=== PATIENT | male | born 1985 | race Caucasian/White ===

== ENCOUNTER → 2024-08-03 11:42 | Outpatient (CLI) | payer OTHER, SELFPAY ==
--- NOTE | 2024-08-03 11:49 | DI.MRI.S_ITS ---
PROCEDURE: MR BRAIN (IAC) WWO CON INDICATIONS: Sensorineural hearing loss, unilateral, left ear, TECHNIQUE: Noncontrast sagittal T1 spin echo, axial FLAIR, axial gradient echo, axial diffusion and ADC through the brain. Axial thin-slice 3D CISS, coronal TruFISP, axial T1 spin echo with fat saturation through the internal auditory canals. After the administration of contrast, thin slice axial and coronal T1 spin echo with fat saturation through the internal auditory canals, and axial and coronal and sagittal T1 spin echo with fat saturation through the brain. COMPARISON: None. FINDINGS: Image quality: Excellent. Cerebellopontine angles: No cerebellopontine angle masses. Inner ear structures appear normally formed. No suspicious enhancement in the internal auditory canal or along the course of the 7th cranial nerve. CSF spaces: Ventricles are normal in size and shape. No extra-axial fluid collections. Basal cisterns are patent. Brain: No intracranial bleeds or mass effects. [place]izarro-white matter interface is intact. No abnormal intracranial enhancement. Diffusion weighted images demonstrate no acute ischemic insults. Brainstem appears normal. Normal intravascular flow voids are present. Skull and face: Calvarial marrow signal is normal. Orbits appear normal. Sinuses: Sinuses and mastoids are clear. IMPRESSION: No significant abnormality is seen. Specifically, no masses or abnormal enhancement are seen within the cerebellopontine angle cisterns or within the internal auditory canals. Dictated by: Siva Jj M.D. on 08/03/2024 at 12:52 Approved by: Siva Jj M.D. on 08/03/2024 at 12:53
== END ==
LOC: MRI 11:48
PROVIDERS: PCP Family Medicine; Referring Provider Otolaryngology; Visit Provider Otolaryngology
DX: H90.42 Sensorineural hearing loss, unilateral, left ear, with unrestricted hearing on the contralateral side (principal); H93.12 Tinnitus, left ear; H93.8X2 Other specified disorders of left ear
CPT/HCPCS: 70553; A9579

== ENCOUNTER 2025-08-19 10:36 | Emergency (ER) | payer OTHER, SELFPAY ==
[2025-08-19] VITALS (9 sets, daily range): BP systolic 117–160; BP diastolic 70–91; PULSE 76–94; RESP 12–22; TEMP 36.7; O2SAT 97–99; BMI 32.5
--- OUTSIDE RECORDS SUMMARY | 2025-08-19 10:38 | XMS_ITS | Encounter Summary ---
Author Organization [facility] Address [address] [place] [address] Care Team Providers Care Head Of Commission Department Name Role Phone Pcp, None Selected Primary Care Provider Unavail able Encounter Details Date Type Department Care Team (Late st Contact Info) Description 08/31/2024 Abstract [facility] [place] [address] [place] [address] [place] [id number] Thomas Jackson MD [address] [place] [address] Social History Tobacco Use Types Packs/Day Years Used Date Smoking Tobacco: Some Days Cigars Smokeless Tobacco: Never Comments:Occasional cigar Alcohol Use Standard Drinks/Week Comments Yes 2 (1 standard drink = 0.6 oz pur e alcohol) Days of couple here and there Sex and Gender Information Value Date Recorded Sex Assigned at Not on file Legal Sex Male 7:33 PM PDT Gender Identity Not on file Sexual Orientation Not on file 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
--- NOTE | 2025-08-19 10:50 | EKG_ITS ---
[address] [address] Test Date: 2025-08-19 Pat Name: Feliz Holland Department: Room: Gender: Male Director Human Services: DINO : 1985 Requested By: Order Number: [id number] Reading MD: Vernon Barajas Measurements Intervals [place] Rate: 81 P: 24 ND: 148 QRS: 15 QRSD: 90 T: 23 QT: 370 QTc: 429 Interpretive Statements Normal sinus rhythm Electronically Signed On 08-19-2025 18:29:36 PST by Vernon Barajas
--- NOTE | 2025-08-19 10:50 | DI.RAD.S_ITS ---
PROCEDURE: XR CHEST 1V INDICATIONS: Chest Pain TECHNIQUE: One view of the chest was acquired. COMPARISON: None. FINDINGS: Surgical changes and devices: None. Lungs and pleura: Lungs are clear. No pleural effusions or pneumothorax. Mediastinum: Mediastinal contours appear normal. Heart size is normal. Bones and chest wall: No suspicious bony lesions. Overlying soft tissues appear unremarkable. IMPRESSION: No acute cardiopulmonary abnormality is seen. Approved by: Kanwal Deras M.D.,Ph.D. on 08/19/2025 at 11:18
--- NOTE | 2025-08-19 11:12 | ED.CHESTPAIN ---
HPI - Chest Pain General Chief Complaint: Chest Pain Stated Complaint: chest pain , 2 days Time Seen by Provider: 08/19/25 10:57 Source: patient Mode of arrival: Ambulatory Limitations: no limitations History of Present Illness HPI narrative: Patient is a 40-year-old male without significant past medical problems presenting today with couple days of ongoing chest pain and pressure. He says it is constant in nature more in the right side than the left he occasionally gets sharp shooting pain. Sometimes short of breath when he walks. No known family history of coronary artery disease. However an uncle or someone has an abdominal aortic aneurysm. Pain is slightly reproducible when palpated. He denies any injury lifting exercise or other. He has not tried anything at home for pain. He has not been ill no significant cough or fever. Related Data Allergies Allergy/AdvReac Type Severity Reaction Status Date / Time No Known Drug Allergies Allergy Verified 08/19/25 10:55 Patient History Social History Smoking Status: Never smoker Smoking Status: Never smoker Exam Initial Vital Signs Initial Vital Signs: Vital Signs Temperature 98.0 F 08/19/25 10:53 Pulse Rate 94 H 08/19/25 10:53 Respiratory Rate 14 08/19/25 10:53 Blood Pressure 160/91 H 08/19/25 10:53 Pulse Oximetry 99 08/19/25 10:53 Oxygen Delivery Method Room Air 08/19/25 10:53 GENERAL: Alert pleasant well-appearing 40-year-old and in no acute distress. HEENT: Head atraumatic,EOMI, pupils reactive, face symmetric, moist mucous membranes CARDIOVASCULAR: Regular rate and rhythm without murmurs, rubs or gallops. Slightly reproducible right-sided chest pain no significant reproducible pain with right arm movement RESPIRATORY: Breath sounds equal bilaterally, no wheezes rales or rhonchi. ABDOMEN: Soft, nontender. Normoactive bowel sounds all 4 quadrants. No guarding or rebound. EXTREMITIES: Normal range of motion, no clubbing or edema. Neurovascularly intact NEUROLOGICAL: Alert and oriented x4.Normal gait and speech. Cranial nerves II through XII grossly intact. SKIN: Warm, dry, no laceration, no petechiae, no rashes or lesions. Scores HEART Score Heart Score history: Slightly Suspicious Heart Score EKG: Normal Heart Score Age: < 45 years old Heart Score risk factors: No known risk factors Heart Score troponin: < or = to normal limit Heart Score Total: 0 PERC Score Age greater than or equal to 50 years: No Heart rate greater than or equal to 100 bpm: No Room Air O2 Sat less than 95%: No Unilateral leg swelling: No Recent trauma or surgery: No Hemoptysis: No Prior PE or DVT: No Hormone Use: No Total PERC Score: 0 Course Orders Ordered: ED Orders 08/19/25 10:50 XR chest 1V Stat EKG-12 Lead Stat 08/19/25 11:00 Complete Blood Count AUTO DIFF Stat Comprehensive Metabolic Panel Stat D Dimer Stat Lipase Stat Magnesium Stat NT-proBNP (BNP-Adult 18+) Stat PTT Partial Thromboplastin Otto Stat Prothrombin Time INR Stat Troponin & CK Cardiac Panel Stat Discontinued Medications Aspirin (Aspirin 81 Mg Chew Tab) 324 mg PO NOW ONE Stop: 08/19/25 10:51 Last Admin: 08/19/25 10:53 Dose: Not Given Documented By: HUEY Vital Signs Vital signs: Vital Signs - 8 hr 08/19/25 10:53 08/19/25 11:00 08/19/25 11:01 Temperature 98.0 F Pulse Rate 94 H 86 Respiratory Rate 14 19 Blood Pressure 160/91 H 135/78 Pulse Oximetry 99 97 Oxygen Delivery Method Room Air Room Air 08/19/25 11:01 08/19/25 11:30 08/19/25 11:30 Temperature Pulse Rate 87 80 Respiratory Rate 20 21 Blood Pressure 117/70 Pulse Oximetry 98 97 Oxygen Delivery Method 08/19/25 11:59 08/19/25 12:00 08/19/25 12:00 Temperature Pulse Rate 77 76 Respiratory Rate 22 21 Blood Pressure 121/77 Pulse Oximetry 98 98 Oxygen Delivery Method 08/19/25 12:14 08/19/25 12:14 08/19/25 12:30 Temperature Pulse Rate 80 76 Respiratory Rate 21 12 Blood Pressure 125/81 Pulse Oximetry 98 99 Oxygen Delivery Method 08/19/25 12:30 08/19/25 13:00 08/19/25 13:00 Temperature Pulse Rate 80 Respiratory Rate 16 Blood Pressure 126/72 131/79 Pulse Oximetry 98 Oxygen Delivery Method MDM - Chest Pain Lab Data 08/19/25 11:00 08/19/25 11:00 Labs: Lab Results 08/19/25 Range/Units 11:00 WBC 5.6 (4.5-11.0) X10^3/uL RBC 5.13 (4.5-5.9) X10^6/uL Hgb 15.0 (13.5-17.5) g/dL Hct 43.4 (41-53) % MCV 84.5 (80-100) fL MCH 29.3 (26-34) PG MCHC 34.6 (30-36) % RDW 13.2 (11.6-14.8) % Plt Count 203 (150-400) X10^3/uL Neut % (Auto) 57.3 (50-75) % Lymph % (Auto) 33.4 (25-40) % [place] % (Auto) 8.1 (3-14) % Eos % (Auto) 0.5 L (2-4) % Baso % (Auto) 0.7 (0-2) % Neut # (Auto) 3200 (4879-5334) /uL Lymph # (Auto) 1900 (3933-2906) /uL [place] # (Auto) 500 (0-900) /uL Eos # (Auto) 0 (0-450) /uL Baso # (Auto) 0 (0-100) /uL PT 11.3 (9.4-12.5) SECONDS INR 1.0 (0.9-1.3) APTT 37 H (25.1-36.5) SECONDS D-Dimer < 215 (<500) ng/ml Sodium 140 (137-145) mmol/L Potassium 4.1 (3.4-5.1) mmol/L Chloride 106 (98-107) mmol/L Carbon Dioxide 25 (22-32) mmol/L BUN 12 (9-20) mg/dL Creatinine 0.99 (0.66-1.25) mg/dL Estimated GFR > 60 (>60) mL/min BUN/Creatinine Ratio 12.1 (6-22) Glucose 102 H (70-99) mg/dL Calcium 9.6 (8.4-10.2) mg/dL Magnesium 2.2 (1.6-2.3) mg/dL Total Bilirubin 0.5 (0.2-1.3) mg/dL AST 29 (17-59) IU/L ALT 33 (<50) IU/L Alkaline Phosphatase 61 (38-126) U/L Total Creatine Kinase 101 (55-170) U/L Troponin I < 0.012 (0.01-0.034) ng/mL NT-Pro-B Natriuret Pep < 20 (<125) pg/mL Total Protein 7.9 (6.3-8.2) g/dL Albumin 4.8 (3.5-5.0) g/dL Globulin 3.1 (1.7-4.1) g/dL Albumin/Globulin Ratio 1.5 (1.0-2.8) Lipase 83 (23-300) U/L Urine Dip Bedside Urine Glucose Negative Bedside Urine Bilirubin - Negative Bedside Urine Ketone - Negative Urine Specific [place] 1.000 Bedside Urine Occult Blood - Negative Bedside Urine pH 6.0 Bedside Urine Protein - Negative Bedside Urine Urobilinogen - Negative Bedside Urine Nitrite - Negative Bedside Urine Leukocytes - Negative Esterase Imaging Data Chest x-ray: Radiologist's Impression: PROCEDURE: XR CHEST 1V INDICATIONS: Chest Pain TECHNIQUE: One view of the chest was acquired. COMPARISON: None. FINDINGS: Surgical changes and devices: None. Lungs and pleura: Lungs are clear. No pleural effusions or pneumothorax. Mediastinum: Mediastinal contours appear normal. Heart size is normal. Bones and chest wall: No suspicious bony lesions. Overlying soft tissues appear unremarkable. IMPRESSION: No acute cardiopulmonary abnormality is seen. Approved by: Kanwal Deras M.D.,Ph.D. on 08/19/2025 at 11:18 ECG Data Attestation: I personally reviewed and interpreted this ECG as follows: Interpretation: Normal sinus rhythm rate 81 HI interval 148 QRS [address] changes no T-wave inversion MDM Narrative Medical decision making narrative: [facility] CC: Chest pain Complicating co-morbidities: None Data collected from: Patient and Medical records reviewed: None Differential considered: Musculoskeletal/costochondritis Acute coronary syndrome, pulmonary embolism, pneumonia, pneumothorax Exam documented above, pertinent findings include: Alert well-appearing 40-year-old male with reproducible right-sided chest pain Lab Test results independently reviewed as above. Pertinent findings: CBC within normal CMP within normal limits Troponin negative D-dimer negative Independently reviewed EKG as above Sinus rhythm without ischemia Imaging studies independently reviewed: Chest x-ray no acute cardiopulmonary process Consultations:none Treatments: Offered Toradol but declined Re-evaluations: Pain is roughly the same but very tolerable Discussion: Patient is a 40-year-old male presenting today with right-sided chest pain. It seems to be constant in nature ongoing for a couple of days with the occasional sharp shooting pain. It is somewhat reproducible. Workup in the emergency department is overall reassuring. He has a heart score of 0 along with a PERC score of 0- troponin and negative D-dimer. Low suspicion for cardiac issue suspect more of musculoskeletal in costochondritis. Discussion about pain management at home and follow up with primary care provider. Both he and understand. All questions have been addressed Discharge Plan Departure Patient Disposition: Home Clinical Impression: Acute costochondritis Instructions: DI for Costochondritis Activity Restrictions/Additional Instructions: *You have been diagnosed with costochondritis *What to do: At this time it is but suspect that this is more musculoskeletal rather than cardiac Please get a new primary care provider you may need outpatient stress test and over echocardiogram *Continue to take medications as directed Motrin 600 mg every 6 hours for [id number] pain Tylenol 1000 mg every 6 hours for [id number] *Follow up with your primary care provider in 2-3 days or call [phone] *Return to ER if you should have increasing pain shortness of breath heavy or any new, worsening or concerning symptoms Referrals: Darin Bar MD [Primary Care Provider, Family Practice] Stand Alone Forms: Patient Portal/API
[2025-08-19 11:21] LABS: Add Manual Diff / Slide Review NO; Hematocrit 43.4 % (41-53); Hemoglobin 15.0 g/dL (13.5-17.5); Lymphocytes Absolute Auto 1900 /uL (1100-4500); Mean Corpuscular HGB Conc 34.6 % (30-36); Mean Corpuscular Hemoglobin 29.3 PG (26-34); Mean Corpuscular Volume 84.5 fL (80-100); Platelet Count 203 X10^3/uL (150-400)
[2025-08-19 11:28] LABS: INR 1.0 (0.9-1.3); Prothrombin Time 11.3 SECONDS (9.4-12.5)
[2025-08-19 11:30] LABS: PTT Partial Thromboplastin Tim 37 SECONDS (25.1-36.5)
[2025-08-19 11:32] LABS: Alanine Aminotransferase 33 IU/L (<50); Albumin 4.8 g/dL (3.5-5.0); Albumin Globulin Ratio 1.5 (1.0-2.8); Alkaline Phosphatase 61 U/L (38-126); Blood Urea Nitrogen 12 mg/dL (9-20); Calcium 9.6 mg/dL (8.4-10.2); Carbon Dioxide 25 mmol/L (22-32); Chloride 106 mmol/L (98-107); Creatine Kinase 101 U/L (55-170); Estimated Glomerular Filt Rate > 60 mL/min (>60); Globulin 3.1 g/dL (1.7-4.1); Glucose 102 mg/dL (70-99); HEMOLYSIS < 15 (0-50); Lipase 83 U/L (23-300); Magnesium 2.2 mg/dL (1.6-2.3); Potassium 4.1 mmol/L (3.4-5.1); Sodium 140 mmol/L (137-145); Total Protein 7.9 g/dL (6.3-8.2)
[2025-08-19 11:44] LABS: NT-proBNP (BNP-Adult 18+) < 20 pg/mL (<125); Troponin I < 0.012 ng/mL (0.01-0.034)
== END 2025-08-19 13:25 | disposition home or self-care (01) ==
PROVIDERS: Emergency Provider Emergency Medicine; PCP Family Medicine
DX: M94.0 Chondrocostal junction syndrome [Tietze] (principal); R06.02 Shortness of breath
CPT/HCPCS: 36415; 71045; 80053; 81003; 82550; 83690; 83735; 83880; 84484; 85025; 85379; 85610; 85730; 93005; 99283; 99284